=== PATIENT | male | born 1950 | race Caucasian/White ===

== ENCOUNTER 2021-02-13 18:37 | Emergency (ER) | payer BC, OTHER ==
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
== END 2021-02-13 20:34 | disposition home or self-care (01) ==
LOC: FB.ED 18:37
DX: S13.4XXA Sprain of ligaments of cervical spine, initial encounter (principal); V49.59XA Passenger injured in collision with other motor vehicles in traffic accident, initial encounter; Y92.410 Unspecified street and highway as the place of occurrence of the external cause
CPT/HCPCS: 72125; 99284-25